=== PATIENT | female | born 2000 | race Caucasian/White ===

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

== ENCOUNTER 2019-09-10 19:26 | Emergency (ER) | payer OTHER ==
[~2019-09-10] VITALS: Ht 170.2 cm; Wt 63.6 kg
[~2019-09-10 19:26] MED LIST: 00186-0370-20 IH; LEXAPRO20 MG PO; PROAIR HFA0.09 MG/AC IH; SINGULAIR 110 MG/TAB PO; SKYLA13.5 MG IY
[2019-09-10 20:22] LABS: BASO % 0.5 % (0.0-2.0); EOS # 0.6 (0.0-0.7); GRAN # 5.5 (1.4-6.5); GRAN % 72.9 % (42.2-75.2); HEMATOCRIT 37.4 % (35.0-45.0); HEMOGLOBIN 12.8 g/dl (12.0-15.0); LYMPH % 12.7 % (20.0-51.0); MEAN CELL VOLUME 92 fl (80.0-95.0); MEAN CORPUSCULAR HEMOGLOBIN 31 pg (26.0-32.0); MEAN CORPUSCULAR HGB CONC 34 g/dl (33.0-37.0); MONO # 0.4 (0.1-0.6); MONO % 5.8 % (1.7-9.3); PLATELET COUNT 222 K/mm3 (130-400); RED BLOOD COUNT 4.08 M/mm3 (4.10-5.30); REDCELL DISTRIBUTION WIDTH-CV 11.7 % (11.5-14.5)
[2019-09-10 20:35] LABS: CALCIUM 9.1 mg/dL (8.4-10.2); CREATININE, serum 0.65 (0.52-1.25); POTASSIUM 3.6 mmol/L (3.4-5.0)
[2019-09-10 21:10] VITALS: BP 101/58
[2019-09-10] MEDS ORDERED: AMOXICILLIN 50500 MG PO (21:11)
[2019-09-10] MEDS ORDERED: ZITHROMAX Z PA250 MG PO (21:11)
[2019-09-10] MEDS ORDERED: PROAIR HFA0.09 MG/AC IH (21:24)
[2019-09-10 21:25] VITALS: PULSE 100; TEMP 98.4
== END 2019-09-10 21:25 | disposition home or self-care (01) ==
LOC: COL.ER 19:26
PROVIDERS: Physician Assistant
DX: J18.9 Pneumonia, unspecified organism (principal); J45.909 Unspecified asthma, uncomplicated

== ENCOUNTER 2019-09-18 11:45 | Emergency (ER) | payer OTHER ==
[~2019-09-18] VITALS: Ht 170.2 cm; Wt 63.6 kg
[~2019-09-18 11:45] MED LIST changes: +AMOXICILLIN 50500 MG PO; +ZITHROMAX Z PA250 MG PO
[2019-09-18 12:11] VITALS: BP 111/76; TEMP 98.6
[2019-09-18] MEDS ORDERED: TAMIFLU 75MG75 MG PO (14:20)
[2019-09-18 14:35] VITALS: PULSE 80
== END 2019-09-18 14:35 | disposition home or self-care (01) ==
LOC: COL.ER 11:45
DX: J11.1 Influenza due to unidentified influenza virus with other respiratory manifestations (principal); F32.9 Major depressive disorder, single episode, unspecified; J45.909 Unspecified asthma, uncomplicated

== ENCOUNTER 2019-10-16 10:05 | Emergency (ER) | payer OTHER ==
[~2019-10-16] VITALS: Ht 170.2 cm; Wt 62.7 kg
[~2019-10-16 10:05] MED LIST changes: +TAMIFLU 75MG75 MG PO
[2019-10-16 10:21] VITALS: TEMP 98.4
[2019-10-16] MEDS ORDERED: DECADRON 4MG TAB4 MG PO (12:06)
[2019-10-16] MEDS ORDERED: PROAIR HFA0.09 MG/AC IH (12:06)
[2019-10-16 12:12] VITALS: BP 106/84; PULSE 89
== END 2019-10-16 12:12 | disposition home or self-care (01) ==
LOC: COL.ER 10:05
DX: J44.1 Chronic obstructive pulmonary disease with (acute) exacerbation (principal); J06.9 Acute upper respiratory infection, unspecified
CPT/HCPCS: J8540

== ENCOUNTER 2020-02-02 17:31 | Emergency (ER) | payer OTHER ==
[~2020-02-02] VITALS: Ht 170.2 cm; Wt 63.6 kg
[~2020-02-02 17:31] MED LIST changes: +DECADRON 4MG TAB4 MG PO
[2020-02-02 17:52] VITALS: TEMP 98.4
[2020-02-02 18:33] LABS: COLLECTION METHOD CLEAN CATCH
[2020-02-02 18:37] LABS: BASO # 0.1 (0.0-0.2); BASO % 0.6 % (0.0-2.0); EOS # 0.4 (0.0-0.7); EOS % 5.3 % (0-4.0); GRAN # 3.8 (1.4-6.5); GRAN % 48.8 % (42.2-75.2); HEMATOCRIT 37.1 % (35.0-45.0); LYMPH # 2.9 (1.2-3.4); LYMPH % 37.7 % (20.0-51.0); MEAN CELL VOLUME 89 fl (80.0-95.0); MEAN CORPUSCULAR HEMOGLOBIN 31 pg (26.0-32.0); MEAN CORPUSCULAR HGB CONC 35 g/dl (33.0-37.0); MEAN PLATELET VOLUME 10.8 fl (7.4-10.4); MONO # 0.6 (0.1-0.6); MONO % 7.5 % (1.7-9.3); PLATELET COUNT 241 K/mm3 (130-400); RED BLOOD COUNT 4.16 M/mm3 (4.10-5.30); REDCELL DISTRIBUTION WIDTH-CV 11.6 % (11.5-14.5)
[2020-02-02 18:42] LABS: MUCOUS Present /lpf; PH 6 (5-8); URINE APPEARANCE Hazy; URINE BACTERIA Rare /hpf; URINE BILIRUBIN Negative (NEGATIVE); URINE BLOOD Negative (NEGATIVE); URINE COLOR Yellow; URINE GLUCOSE Negative (NEGATIVE); URINE KETONE Negative (NEGATIVE); URINE LEUKOCYTE ESTERASE Negative (NEGATIVE); URINE NITRATE Negative (NEGATIVE); URINE PROTEIN(semi-quant) Negative (NEGATIVE); URINE RBC 0-2 /hpf; URINE UROBILINOGEN >=4.0 mg/dL (NEGATIVE)
[2020-02-02 19:04] LABS: ALANINE AMINOTRANSFERASE 10 U/L (4-34); ALBUMIN 4.3 gm/dL (3.5-5.0); ALKALINE PHOSPHATASE 49 U/L (50-136); ANION GAP 8 mmol/L (7-16); AST,SGOT 17 U/L (15-37); BILIRUBIN,TOTAL 0.6 mg/dL (0.0-1.0); BLOOD UREA NITROGEN 10 mg/dL (7-17); CALCIUM 9.1 mg/dL (8.4-10.2); CARBON DIOXIDE 24 mmol/L (22-30); CHLORIDE 103 mmol/L (98-107); CREATININE, serum 0.78 (0.52-1.25); GLUCOSE 101 mg/dL (74-106); LIPASE 55 U/L (23-300); POTASSIUM 3.5 mmol/L (3.4-5.0); SODIUM 136 mmol/L (137-145); TOTAL PROTEIN 7.4 gm/dL (6.4-8.2)
[2020-02-02 19:09] LABS: C-REACTIVE PROTEIN < 0.5 mg/dL (0.0-0.9)
[2020-02-02 20:58] VITALS: BP 108/74; PULSE 80
== END 2020-02-02 20:58 | disposition other institution (70) ==
LOC: COL.ER 17:31
PROVIDERS: Emergency Medicine
DX: R10.12 Left upper quadrant pain (principal); R50.9 Fever, unspecified

== ENCOUNTER 2020-08-06 10:32 | Emergency (ER) | payer OTHER ==
[~2020-08-06] VITALS: Ht 172.7 cm; Wt 63.6 kg
[2020-08-06 10:46] VITALS: TEMP 99.1
[2020-08-06 11:30] VITALS: BP 112/66; PULSE 86
== END 2020-08-06 11:30 | disposition home or self-care (01) ==
LOC: COL.ER 10:32
DX: S61.012A Laceration without foreign body of left thumb without damage to nail, initial encounter (principal); W27.2XXA Contact with scissors, initial encounter

== ENCOUNTER 2020-08-12 09:40 | Emergency (ER) | payer OTHER ==
[~2020-08-12] VITALS: Ht 170.2 cm; Wt 63.6 kg
[2020-08-12 10:02] VITALS: BP 118/86; TEMP 97.5
[2020-08-12] MEDS ORDERED: CEPHALEXIN500 M1 PO (10:13)
[2020-08-12 10:24] VITALS: PULSE 71
== END 2020-08-12 10:23 | disposition home or self-care (01) ==
LOC: COL.ER 09:40
DX: S61.012D Laceration without foreign body of left thumb without damage to nail, subsequent encounter (principal); Z79.51 Long term (current) use of inhaled steroids; X58.XXXD Exposure to other specified factors, subsequent encounter

== ENCOUNTER 2021-01-11 11:39 | Emergency (ER) | payer OTHER ==
[~2021-01-11] VITALS: Ht 170.2 cm; Wt 61.4 kg
[~2021-01-11 11:39] MED LIST changes: +CEPHALEXIN500 M1 PO
[2021-01-11 12:50] LABS: COLLECTION METHOD CLEAN CATCH
[2021-01-11 12:53] LABS: BASO # 0.1 (0.0-0.2); BASO % 0.7 % (0.0-2.0); EOS # 0.1 (0.0-0.7); EOS % 1.4 % (0-4.0); GRAN # 4.6 (1.4-6.5); HEMATOCRIT 45.5 % (37.0-47.0); HEMOGLOBIN 15.7 g/dl (12.5-16.0); MEAN CELL VOLUME 93 fl (80.0-100.0); MEAN CORPUSCULAR HEMOGLOBIN 32 pg (27.0-31.0); MEAN CORPUSCULAR HGB CONC 35 g/dl (33.0-37.0); MEAN PLATELET VOLUME 10.4 fl (7.4-10.4); MONO # 0.3 (0.1-0.6); MONO % 3.6 % (1.7-9.3); PLATELET COUNT 334 K/mm3 (130-400)
[2021-01-11 12:58] LABS: MUCOUS Present /lpf; PH 9 (5-8); URINE APPEARANCE Hazy; URINE BACTERIA Rare /hpf; URINE BILIRUBIN Negative (NEGATIVE); URINE BLOOD Negative (NEGATIVE); URINE COLOR Yellow; URINE GLUCOSE Negative (NEGATIVE); URINE KETONE Negative (NEGATIVE); URINE LEUKOCYTE ESTERASE Negative (NEGATIVE); URINE NITRATE Negative (NEGATIVE); URINE PROTEIN(semi-quant) 2+ (NEGATIVE); URINE RBC 0-2 /hpf; URINE UROBILINOGEN Negative (NEGATIVE)
[2021-01-11 13:07] LABS: ALANINE AMINOTRANSFERASE 18 U/L (4-34); ALBUMIN 5.4 gm/dL (3.5-5.0); ALKALINE PHOSPHATASE 69 U/L (50-136); ANION GAP 17 mmol/L (7-16); AST,SGOT 27 U/L (15-37); BILIRUBIN,TOTAL 0.4 mg/dL (0.0-1.0); BLOOD UREA NITROGEN 8 mg/dL (7-17); CALCIUM 10.2 mg/dL (8.4-10.2); CARBON DIOXIDE 19 mmol/L (22-30); CHLORIDE 106 mmol/L (98-107); GLUCOSE 97 mg/dL (74-106); LIPASE 32 U/L (23-300); SODIUM 142 mmol/L (137-145); TOTAL PROTEIN 9.5 gm/dL (6.4-8.2)
[2021-01-11 13:08] LABS: C-REACTIVE PROTEIN < 0.5 mg/dL (0.0-0.9)
[2021-01-11] MEDS ORDERED: ZOFRAN ODT4 MG PO (13:58)
[2021-01-11 14:20] VITALS: BP 104/64; PULSE 80; TEMP 97.6
== END 2021-01-11 14:21 | disposition home or self-care (01) ==
LOC: COL.ER 11:39
PROVIDERS: Family Medicine
DX: K52.9 Noninfective gastroenteritis and colitis, unspecified (principal); Z79.51 Long term (current) use of inhaled steroids
CPT/HCPCS: J2270; J2405; J7120

== ENCOUNTER 2021-01-25 10:08 | Emergency (ER) | payer OTHER ==
[~2021-01-25] VITALS: Ht 170.2 cm; Wt 63.6 kg
[~2021-01-25 10:08] MED LIST changes: +ZOFRAN ODT4 MG PO
[2021-01-25 10:25] VITALS: TEMP 97.8
[2021-01-25 10:54] LABS: BASO % 0.4 % (0.0-2.0); EOS % 0.4 % (0-4.0); GRAN # 8.9 (1.4-6.5); GRAN % 82.8 % (42.2-75.2); HEMOGLOBIN 15.6 g/dl (12.5-16.0); LYMPH # 1.5 (1.2-3.4); LYMPH % 13.8 % (20.0-51.0); MEAN CELL VOLUME 89 fl (80.0-100.0); MEAN CORPUSCULAR HEMOGLOBIN 32 pg (27.0-31.0); MEAN CORPUSCULAR HGB CONC 36 g/dl (33.0-37.0); MEAN PLATELET VOLUME 10.3 fl (7.4-10.4); MONO # 0.3 (0.1-0.6); MONO % 2.3 % (1.7-9.3); PLATELET COUNT 306 K/mm3 (130-400); RED BLOOD COUNT 4.84 M/mm3 (4.10-5.30); REDCELL DISTRIBUTION WIDTH-CV 11.9 % (11.5-14.5)
[2021-01-25 11:10] LABS: ALANINE AMINOTRANSFERASE 17 U/L (4-34); ALBUMIN 5.1 gm/dL (3.5-5.0); ALKALINE PHOSPHATASE 65 U/L (50-136); ANION GAP 15 mmol/L (7-16); AST,SGOT 26 U/L (15-37); BILIRUBIN,TOTAL 0.7 mg/dL (0.0-1.0); BLOOD UREA NITROGEN 7 mg/dL (7-17); CALCIUM 9.7 mg/dL (8.4-10.2); CARBON DIOXIDE 19 mmol/L (22-30); CHLORIDE 105 mmol/L (98-107); CREATININE, serum 0.56 (0.52-1.25); GLUCOSE 103 mg/dL (74-106); LIPASE 23 U/L (23-300); SODIUM 138 mmol/L (137-145); TOTAL PROTEIN 8.6 gm/dL (6.4-8.2)
[2021-01-25 11:11] LABS: C-REACTIVE PROTEIN < 0.5 mg/dL (0.0-0.9)
[2021-01-25] MEDS ORDERED: PHENERGAN25 MG RC (13:03)
[2021-01-25 13:10] VITALS: BP 118/80; PULSE 89
== END 2021-01-25 13:10 | disposition home or self-care (01) ==
LOC: COL.ER 10:08
PROVIDERS: Family Medicine
DX: R11.2 Nausea with vomiting, unspecified (principal); R10.13 Epigastric pain; J45.909 Unspecified asthma, uncomplicated; Z79.51 Long term (current) use of inhaled steroids
CPT/HCPCS: J0780; J2405; J7120; Q9967

== ENCOUNTER → 2021-02-18 | Outpatient (CLI) | payer OTHER ==
[~2021-02-18] MED LIST changes: +PHENERGAN25 MG RC
== END ==
LOC: COL.RAD 09:39
DX: K83.5 Biliary cyst (principal); R93.2 Abnormal findings on diagnostic imaging of liver and biliary tract
CPT/HCPCS: A9537

== ENCOUNTER → 2021-02-28 | Outpatient (CLI) | payer OTHER | LOC: COL.RAD 07:40 | DX: R11.0 Nausea (principal) | CPT/HCPCS: A9541 ==

== ENCOUNTER → 2021-03-12 | Outpatient (CLI) | payer OTHER | LOC: COL.RAD 03-08 12:00 | DX: E05.90 Thyrotoxicosis, unspecified without thyrotoxic crisis or storm (principal) ==